=== PATIENT | male | born 1995 | race Caucasian/White ===

== ENCOUNTER 2016-06-25 20:40 | Emergency (ER) | payer BC ==
[2016-06-25 22:21] VITALS: BP 128/77
[2016-06-25] MEDS ORDERED: Tetan/Diph/Pertus SYR(Tdap)* 0.5 ML SYR(BOOSTRIX) use SYR IM ONE (22:43)
[2016-06-25] MEDS ORDERED: Naproxen TAB* 250 MG PO ONE (23:35)
--- NOTE | 2016-06-26 00:10 | ED ---
Laceration/Wound HPI - HPI Summary HPI Summary: Patient arrives one hour after sustaining a laceration injury to the back of the scalp after falling off a chair and hitting the back of his head on the corner of the table. Denies LOC, denies memory loss, blurry vision or double vision. States he did not have light headedness, denies drug use. Small amount of alcohol use today. With friends to drive. Patient in good spirits. stating pain is 3/10. Small amount of blood loss. Last tetanus is unknown. - History of Current Complaint Stated Complaint: FALL/HEAD INJURY Time Seen by Provider: 06/25/16 22:40 Hx Obtained From: Patient Mechanism of Injury: Sharp/Blunt Trauma - edge of table Onset/Duration: Sudden Onset Aggravating: Nothing Alleviating: Nothing Onset Severity: Moderate Current Severity: Moderate Pain Intensity: 6 Pain Scale Used: 0-10 Numeric Associated Signs & Symptoms: Negative - Allergy/Home Medications Allergies/Adverse Reactions: Allergies Allergy/AdvReac Type Severity Reaction Status Date / Time No Known Allergies Allergy Verified 06/25/16 20:47 PMH/Surg Hx/FS Hx/Imm Hx Previously Healthy: Yes Infectious Disease History: No Infectious Disease History: Denies: Traveled Outside the [place] in Last 30 Days - Social History Occupation: Student Lives: Alone Alcohol Use: Occasionally Alcohol Amount: ETOH this date Hx Substance Use: No Substance Use Type: Reports: None Smoking Status (MU): Never Smoked Tobacco Review of Systems Constitutional: Negative Eyes: Negative Cardiovascular: Negative Respiratory: Negative Musculoskeletal: Negative Positive: Other - small laceration to scalp Neurological: Negative Psychological: Normal All Other Systems Reviewed And Are Negative: Yes Physical Exam Triage Information Reviewed: Yes Vital Signs On Initial Exam: Initial Vitals Temp Pulse Resp BP Pulse Ox 98.3 F 108 18 165/98 96 06/25/16 20:47 06/25/16 20:47 06/25/16 20:47 06/25/16 20:47 06/25/16 20:47 Vital Signs Reviewed: Yes Appearance: Positive: Well-Appearing, No Pain Distress Skin: Positive: Warm, Other - 2cm laceration of scalp Head/Face: Positive: Other - small laceration to scalp Eyes: Positive: Normal ENT: Positive: TMs normal Neck: Positive: Supple, Nontender, No Lymphadenopathy Respiratory/Lung Sounds: Positive: Clear to Auscultation, Breath Sounds Present Cardiovascular: Positive: Normal Musculoskeletal: Positive: Normal, Strength/ROM Intact Neurological: Positive: Normal Psychiatric: Positive: Normal AVPU Assessment: Alert Procedures - Laceration/Wound Repair 1 Location: head Description: Linear Length, Depth and Shape: 2 cm, superificial Betadine Prep?: No Irrigated w/ Saline (ccs): 10 Laceration/Wound Explored: clean Closure: Gena #__ - 3 Debridement: none Diagnostics - Vital Signs Vital Signs Temp Pulse Resp BP Pulse Ox 06/25/16 22:00 98.4 F 109 18 128/77 96 06/25/16 20:47 98.3 F 108 18 165/98 96 - Laboratory Lab Statement: Any lab studies that have been ordered have been reviewed, and results considered in the medical decision making process. Laceration Repair Course/Dx - Course Course Of Treatment: no headache, no LOC or visual changes. Irrigated wound with NS. wound explored. no debridement necessary, no FB. Tetanus given. Naproxen 500mg given. three gena placed in scalp. Return to clinic for suture removal 7-14 days. minimal blood loss. no anesthesia used. patient will follow up with student clinic for removal. - Differential Dx Differental Diagnoses: Abrasion, Foreign Body, Healing Wound, Laceration - Clinical Impression Provider Diagnoses: Laceration of scalp Discharge - Discharge Plan Condition: Stable Disposition: HOME Patient Education Materials: Staple Care (ED) Additional Instructions: Staple removal in 7-14 days. Continue to gently wash your hair and do not scrub the area. Topical antibiotic ointment over area for the first few days after you shower. Images - Images Head: 1 - scalp laceration measuring 2cm
== END 2016-06-25 23:58 | disposition home or self-care (01) ==
LOC: ED 20:40
DX: S01.01XA Laceration without foreign body of scalp, initial encounter (principal); W07.XXXA Fall from chair, initial encounter; Y92.9 Unspecified place or not applicable
CPT/HCPCS: 12001; 90471; 90715; 99281